=== PATIENT | male | born 1975 | race Caucasian/White ===

== ENCOUNTER 2016-09-15 14:25 | Emergency (ER) | payer BC ==
[2016-09-15 14:29] VITALS: BP 149/96
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
--- NOTE | 2016-09-17 09:33 | CR ---
Knee 3V Rt HISTORY: trauma FINDINGS: There is a displaced transverse fracture inferior aspect of the patella. Fracture is mildl y comminuted. Associated soft tissue swelling is seen. No other acute abnormality is identified. IMPRESSION: Displaced transverse fracture inferior aspect of the patella with associated soft tissue swelling.
== END 2016-09-15 15:44 | disposition home or self-care (01) ==
LOC: JP.ED 14:25
DX: S82.034A Nondisplaced transverse fracture of right patella, initial encounter for closed fracture (principal); Z98.890 Other specified postprocedural states; X58.XXXA Exposure to other specified factors, initial encounter
CPT/HCPCS: 73562-26-RT; 73562-RT; 99284